=== PATIENT | male | born 2000 | race Caucasian/White ===

== ENCOUNTER 2023-01-18 17:54 | Emergency (ER) | payer OTHER ==
[~2023-01-18] VITALS: Ht 177.8 cm; Wt 99.8 kg
[2023-01-18 18:02] VITALS: BP_SYST 160
[2023-01-18 18:52] LABS: BASOPHILS # (AUTO) 0.1 K/uL (0.0-0.2); BASOPHILS % (AUTO) 0.5 % (0.0-2.0); EOSINOPHILS % (AUTO) 0.2 % (0.0-4.0); HEMATOCRIT 44.3 % (36-54); HEMOGLOBIN 15.5 g/dL (14.0-18.0); LYMPHOCYTES % (AUTO) 19.8 % (20.5-51.5); MEAN CORPUSCULAR HEMOGLOBIN 29 pg (27-31); MEAN CORPUSCULAR HGB CONC 35 % (32-36); MEAN CORPUSCULAR VOLUME 84 fL (79.0-98.0); MONOCYTES # (AUTO) 0.7 K/uL (0.0-1.0); MONOCYTES % (AUTO) 6.4 % (1.7-9.3); NEUTROPHILS # (AUTO) 7.5 K/uL (1.8-7.7); NEUTROPHILS % (AUTO) 73.1 % (40.0-70.0); PLATELET COUNT (AUTO) 178 K/uL (130-430); RED BLOOD CELL COUNT(AUTO) 5.29 MIL/uL (4.2-6.2); RED CELL DISTRIBUTION WIDTH 13.4 % (9.0-15.0); WHITE BLOOD COUNT (AUTO) 10.3 K/uL (4.8-10.8)
[2023-01-18 19:15] LABS: ALANINE AMINOTRANSFERASE 56 U/L (12-78); ALBUMIN 4.4 g/dL (3.4-4.8); ANION GAP 11 (5-15); ASPARTATE AMINOTRANSFERASE 25 U/L (10-37); CALCIUM 9.4 mg/dL (8.4-11.0); CHLORIDE 98 mmol/L (98-107); CREATININE 1.11 mg/dL (0.55-1.30); GFR AFRICAN AMERICAN 108 mL/min (>90); GLUCOSE 117 mg/dL (70-99); TOTAL BILIRUBIN 0.5 mg/dL (0.0-1.0); UREA NITROGEN, BLOOD 14 mg/dL (8-21)
[2023-01-18 19:36] VITALS: BP_SYST 157
== END 2023-01-18 19:41 | disposition home or self-care (01) ==
LOC: SED 17:54
DX: I10 Essential (primary) hypertension (principal); R07.9 Chest pain, unspecified; F12.90 Cannabis use, unspecified, uncomplicated; Z79.899 Other long term (current) drug therapy
CPT/HCPCS: 36415; 80053; 84484; 85025; 93005; 99284

== ENCOUNTER 2023-06-14 21:07 | Emergency (ER) | payer OTHER ==
[~2023-06-14] VITALS: Ht 177.8 cm; Wt 96.6 kg
[2023-06-14 21:23] VITALS: BP_SYST 156; PULSE 156; RESP 22; TEMP 98.3; O2SAT 97
[2023-06-14] MEDS ORDERED: NACL 0.9% 1,000 ML IV ONE (23:00)
[2023-06-14] MEDS ORDERED: KETOROLAC TROMETHAMINE 30 MG VIAL IVP ONE (23:00)
[2023-06-14] MEDS ORDERED: IBUP-1971 PO (23:17)
[2023-06-14] MEDS ORDERED: LISI10TA29 PO (23:17)
[2023-06-14 23:49] VITALS: BP_SYST 148; PULSE 100; RESP 18; TEMP 98.3; O2SAT 98
== END 2023-06-15 00:14 | disposition home or self-care (01) ==
LOC: SED 21:07
DX: R00.2 Palpitations (principal); M79.18 Myalgia, other site; R51.9 Headache, unspecified; M54.2 Cervicalgia; R07.9 Chest pain, unspecified; I10 Essential (primary) hypertension; F12.90 Cannabis use, unspecified, uncomplicated; Z79.899 Other long term (current) drug therapy
CPT/HCPCS: 99283; 96374; 96361; 93005; J1885; J7030

== ENCOUNTER 2023-07-08 04:37 | Emergency (ER) | payer OTHER ==
[~2023-07-08] VITALS: Ht 177.8 cm; Wt 97.5 kg
[~2023-07-08 04:37] MED LIST: IBUP-1971 PO; LISI10TA29 PO
[2023-07-08 04:45] VITALS: BP_SYST 143; PULSE 85; RESP 16; TEMP 97.6; O2SAT 99
[2023-07-08 05:12] VITALS: BP_SYST 148; PULSE 77; RESP 20; TEMP 97.7; O2SAT 97
== END 2023-07-08 05:13 | disposition home or self-care (01) ==
LOC: SED 04:37
DX: R07.9 Chest pain, unspecified (principal); R51.9 Headache, unspecified; I10 Essential (primary) hypertension; Z79.899 Other long term (current) drug therapy
CPT/HCPCS: 93005; 99283

== ENCOUNTER 2023-09-03 18:18 | Emergency (ER) | payer MEDICAID, OTHER ==
[~2023-09-03] VITALS: Ht 177.8 cm; Wt 101.6 kg
[2023-09-03 18:31] VITALS: BP_SYST 152; PULSE 100; RESP 18; TEMP 98.3; O2SAT 99
[2023-09-03] MEDS ORDERED: IBUP-1971 PO (19:42)
[2023-09-03] MEDS ORDERED: PSEU30TA36 PO (19:42)
[2023-09-03] MEDS ORDERED: CEPH-548 PO (19:42)
== END 2023-09-03 19:51 | disposition home or self-care (01) ==
LOC: SED 18:18
DX: J01.90 Acute sinusitis, unspecified (principal); J34.89 Other specified disorders of nose and nasal sinuses; I10 Essential (primary) hypertension; Z79.899 Other long term (current) drug therapy
CPT/HCPCS: 99283